=== PATIENT | female | born 1950 ===

== ENCOUNTER 2024-09-22 09:52 | Outpatient (CLI) | payer MEDICARE ==
--- NOTE | 2024-09-22 12:48 | RADIOLOGY REPORT ---
CLINICAL INDICATION: PRIMARY OSTEOARTHRITIS, LEFT KNEE TECHNIQUE: Multiplanar, multisequence MRI of left knee was performed without contrast. Contrast: None. COMPARISON: None FINDINGS: Joint space and synovium: There is small knee joint effusion. Mild synovitis. No Eden's cyst. Bones and articular cartilage: There is no evidence of acute fracture or bone marrow edema. The ali gnment is normal. Patellofemoral joint space narrowing and chondral thinning. Severe lateral compar tment joint space narrowing and full-thickness chondral loss on both sides of the joint subchondral c ysts and subchondral bone marrow edema. Moderate multifocal chondral loss in the medial femoral condy le and medial tibial plateau. Osteophytes in the lateral femoral tibial compartment and medial compar tment. Menisci: There is a complex tear of the posterior horn and body of the lateral meniscus. Complex tear of the posterior horn and body of the medial meniscus. Tendons and ligaments: The tendons in the posterior knee are intact. The extensor mechanism is inta ct. The anterior cruciate ligament is intact. The posterior cruciate ligament is intact. The m edial collateral ligament and the lateral collateral ligament stabilizing complex are intact. Muscles: Regional muscles are preserved in bulk and signal characteristics. Other: None. IMPRESSION: 1. 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 2. Complex tear of the posterior horn and body of the lateral meniscus. 3. Complex tear posterior horn and body of the medial meniscus. 4. Knee joint effusion and synovitis.
== END 2024-09-22 23:59 | disposition home or self-care (01) ==
LOC: MRI02 09:52
PROVIDERS: ATTEND Orthopaedic Surgery
DX: S83.272A Complex tear of lateral meniscus, current injury, left knee, initial encounter (principal); S83.232A Complex tear of medial meniscus, current injury, left knee, initial encounter; M17.12 Unilateral primary osteoarthritis, left knee; M48.02 Spinal stenosis, cervical region; M25.462 Effusion, left knee; M65.861 Other synovitis and tenosynovitis, right lower leg; X58.XXXA Exposure to other specified factors, initial encounter; Y93.89 Activity, other specified; Y92.89 Other specified places as the place of occurrence of the external cause; Y99.8 Other external cause status
CPT/HCPCS: 73721